=== PATIENT | female | born 1980 | race Asian ===

== ENCOUNTER 2017-12-26 07:15 | Day surgery (SDC) | payer BC ==
[2017-12-24 16:34] VITALS: BMI 33.3
[~2017-12-26 07:15] MED LIST: CEFAZOLIN/Water 2 GM/20 ML SYRINGE ONE
[2017-12-26] MEDS ORDERED: Bupivacaine 0.25% HCL 30 ML VIAL ONE (07:26)
[2017-12-26] MEDS ORDERED: Lidocaine 2% w/Epinephrine 1:200K 20 ML VIAL ONE (07:26)
[2017-12-26] MEDS ORDERED: Fentanyl 100 MCG/2 ML VIAL ONE (07:36)
[2017-12-26] MEDS ORDERED: Midazolam HCl 2 mg/2 ml Vial ONE (07:36)
--- NOTE | 2017-12-26 07:45 | HP ---
CHIEF COMPLAINT: Breast cancer, completed chemotherapy. HISTORY OF PRESENT ILLNESS: The patient is a 37-year-old female, who has been treated with chemother apy for breast cancer. She no longer needs her MediPort. She is here for removal. PAST MEDICAL HISTORY: She had toxoplasmosis at 19 years old and the breast cancer. MEDICATIONS: Levothyroxine, multivitamins. PAST SURGICAL HISTORY: She has had a mastectomy. FAMILY HISTORY: Both parents are alive. Her family is from [facility]. SOCIAL HISTORY: No tobacco or alcohol. She is . ALLERGIES: She has allergies to TOMATOES and EGGS. PHYSICAL EXAMINATION: VITAL SIGNS: She is afebrile, pulse 69, blood pressure 107/67. GENERAL: Well-developed, well-nourished female, in no apparent distress. HEENT: Unremarkable. LUNGS: Clear. HEART: Regular rate and rhythm. BREAST EXAM: The incision has healed well. There is a MediPort on the right side. ABDOMEN: Soft, nontender, good bowel sounds. No hernias. EXTREMITIES: Good pulses. No pedal edema. ASSESSMENT: Completed chemotherapy. PLAN: Removal of MediPort. CONSENT: Discussed planned procedure as well as risk of bleeding and infection. She understands and gives informed consent.
--- NOTE | 2017-12-26 08:39 | OP ---
PREOPERATIVE DIAGNOSIS: Complete chemo. SURGEON: Jamel Santana M.D. PROCEDURE PERFORMED: Removal of MediPort. INDICATIONS: This is a 37-year-old female who has completed chemotherapy for breast cancer and no lo nger requires a MediPort. FINDINGS: Intact system. DESCRIPTION OF PROCEDURE: After informed consent was obtained, patient was taken to the operating ro om and given total intravenous anesthesia and placed in the supine position. Her chest was prepped a nd draped in the usual fashion. Local anesthesia infiltrated subcutaneously and deep. A transverse incision was performed through the old scar. Subcu divided sharply. The capsule incised. The sutur es removed. The MediPort removed. Subcutaneous reapproximated after hemostasis assured with interru pted 3-0 Vicryl. The skin closed with a running subcuticular 4-0 Rapide. Steri-Strips applied. Ban dage applied. The patient tolerated the procedure well and transferred to recovery in good condition . Sponge and needle count verified correct x2.
[2017-12-26] MEDS ORDERED: Lidocaine 1% PF 5 ML VIAL ONE (14:54)
[2017-12-26] MEDS ORDERED: diphenhydrAMINE 50 MG/ML VIAL ONE ×2 (14:54)
[2017-12-26] MEDS ORDERED: Ondansetron HCl/PF 4 MG/2 ML Vial ONE (14:54)
[2017-12-26] MEDS ORDERED: PHENYLEPHRINE-NS 100 MCG/ML 10 ML SYRINGE ONE (14:54)
[2017-12-26] MEDS ORDERED: Dexamethasone 20 MG/5 ML VIAL ONE (14:54)
== END 2017-12-26 11:58 | disposition home or self-care (01) ==
LOC: SDC 07:15
PROVIDERS: ATTEND Surgery
PROC: 0JPT0WZ Removal of Totally Implantable Vascular Access Device from Trunk Subcutaneous Tissue and Fascia, Open Approach (ICD-10-PCS; principal; 2017-12-26)
DX: Z45.2 Encounter for adjustment and management of vascular access device (principal); Z91.012 Allergy to eggs; Z91.018 Allergy to other foods; Z88.8 Allergy status to other drugs, medicaments and biological substances; Z79.899 Other long term (current) drug therapy; Z90.10 Acquired absence of unspecified breast and nipple; Z85.3 Personal history of malignant neoplasm of breast; Z86.19 Personal history of other infectious and parasitic diseases; Z98.890 Other specified postprocedural states
CPT/HCPCS: J1100; J1200; J2001; J2250; J2405; J3010; S0020

== ENCOUNTER 2018-04-19 08:47 | Outpatient (CLI) | payer BC, OTHER ==
[2018-04-19] MEDS ORDERED: Iopamidol 370 76% 100 ML VIAL ONE (11:14)
--- NOTE | 2018-04-23 07:12 | CT ---
CT CHEST WITH IV CONTRAST CT ABDOMEN WITH IV AND ORAL CONTRAST: History: Left breast cancer, re-staging. Comparison: 05-26-16 FINDINGS: No parenchymal lung mass or infiltrate. No pleural fluid or mediastinal adenopathy. Post-operative ch george of left breast and axilla. No recurrent masses are apparent. Area of concern for small irregular low density lesion in the right liver lobe on the previous study is much less conspicuous on the current exam. The spleen, kidneys, adrenal glands, and pancreas are u nremarkable. Circumaortic left renal vein is noted. No enlarged lymph nodes. No evidence of bowel obs truction. Pelvis was not imaged. IMPRESSION: Post-operative changes left breast and axilla. No evidence of recurrent disease. No new abnormalities . POS: VIKY
== END 2018-04-19 08:48 | disposition home or self-care (01) ==
LOC: CT 08:47
PROVIDERS: ATTEND Internal Medicine Hematology & Oncology
DX: C50.412 Malignant neoplasm of upper-outer quadrant of left female breast (principal); Z98.890 Other specified postprocedural states
CPT/HCPCS: 36415; 71260; 74160; 84703

== ENCOUNTER 2018-05-03 10:20 | Outpatient (CLI) | payer BC | END 2018-05-03 10:21 | disposition home or self-care (01) | LOC: BICMAMMO 10:20 | PROVIDERS: ATTEND Surgery | DX: C50.919 Malignant neoplasm of unspecified site of unspecified female breast (principal); Z85.3 Personal history of malignant neoplasm of breast; Z98.890 Other specified postprocedural states | CPT/HCPCS: 77066; G0279 ==

== ENCOUNTER 2019-09-12 08:39 | Outpatient (CLI) | payer BC, OTHER ==
--- NOTE | 2019-09-12 10:20 | CT ---
CT abdomen with contrast: DATE: 09/12/2019 HISTORY: 38-year-old female with breast cancer. Follow-up liver lesion. COMPARISON: 05/26/2016 and 04/19/2018. FINDINGS: On 05/26/2016, there was a small 1.3 cm slightly hypodense nonspecific lesion in the right lobe of the liver in hepatic segment 7. On the current CT, this is more faint, smaller, and less conspicuous, measuring approximately 0.6 cm. It is too small to definitively characterize, but lack of interval gr owth for over 2 years is highly suggestive of a benign entity. Perhaps it is a tiny hepatic hemangioma, and the apparent interval shrinkage is actually due to slightly different timing of phase of scanning. There are no other focal hepatic lesions. Lung bases are clear. Adrenals, pancreas, kidneys, and spleen, are normal. No gross major pathology identified involving the visualized portion s of colon and small intestine. No ascites. No lymphadenopathy in the upper abdomen. IMPRESSION: 1. Tiny lesion in the right lobe of liver is highly likely to be benign. 2. Otherwise negative.
== END 2019-09-12 08:40 | disposition home or self-care (01) ==
LOC: CT 08:39
PROVIDERS: ATTEND Internal Medicine Hematology & Oncology
DX: K76.89 Other specified diseases of liver (principal); C50.919 Malignant neoplasm of unspecified site of unspecified female breast
CPT/HCPCS: 74160

== ENCOUNTER 2019-09-19 09:44 | Outpatient (CLI) | payer BC ==
--- NOTE | 2019-09-19 10:29 | MMO ---
Bilateral MAMMO Bilat Diag [facility]AK[facility]. CLINICAL HISTORY: Patient is 38 years old and is seen for screening. The patient has no family history of breast cancer. The patient has a history of lumpectomy procedure revealed invasive ductal carcinoma in the left axilla in April, and Ultrasound guided core biopsy procedure revealed invasive ductal left breast carcinoma in Mar, 2016. The patient has a history of left Ultrasound Guided Core Biopsy in Mar, 2016. VIEWS: The views performed were: bilateral craniocaudal with tomosynthesis; bilateral mediolateral oblique with tomosynthesis; and bilateral mediolateral with tomosynthesis. FILMS COMPARED: The present examination has been compared to prior imaging studies performed at [facility] on 04/11/2016 and 05/03/2018. This study has been interpreted with the assistance of computer-aided detection. MAMMOGRAM FINDINGS: There are scattered fibroglandular densities. There is an area of skin thickening, an area of architectural distortion, a post-surgical scar and a post operative change seen in the left breast. There are no suspicious masses, suspicious calcifications, or new areas of architectural distortion. IMPRESSION: THERE IS NO MAMMOGRAPHIC EVIDENCE OF MALIGNANCY. THE FINDINGS AND RECOMMENDATIONS WERE DISCUSSED WITH THE PATIENT PRIOR TO HER LEAVING THE CENTER. A ROUTINE FOLLOW-UP MAMMOGRAM AT AGE 40 IS RECOMMENDED. THE RESULTS OF THIS EXAM WERE SENT TO THE PATIENT. ACR BI-RADS Category 2 - Benign finding MAMMOGRAPHY NOTE: 1. A negative mammogram report should not delay a biopsy if a dominant of clinically suspicious mass is present. 2. Approximately 10% to 15% of breast cancers are not detected by mammography. 3. Adenosis and dense breasts may obscure an underlying neoplasm. Reported by: TAWANDA BOBBY MD Electonically Signed: [id number]
== END 2019-09-19 09:45 | disposition home or self-care (01) ==
LOC: BICMAMMO 09:44
PROVIDERS: ATTEND Internal Medicine Hematology & Oncology
DX: C50.412 Malignant neoplasm of upper-outer quadrant of left female breast (principal); D70.9 Neutropenia, unspecified; R11.0 Nausea
CPT/HCPCS: 77063; 77066; 77067; G0279

== ENCOUNTER 2020-06-18 14:41 | Outpatient (CLI) | payer BC ==
--- NOTE | 2020-06-18 15:19 | MMO ---
Right Breast MAMMO Unilat Diag [facility]DI RT+ZAKIA. CLINICAL HISTORY: Patient is 39 years old and is seen for diagnostic exam. The patient has no family history of breast cancer. 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 The patient has a history of left Ultrasound Guided Core Biopsy in Mar, 2016. VIEWS: The views performed were: right craniocaudal with tomosynthesis; right mediolateral oblique with tomosynthesis; and right mediolateral with tomosynthesis. FILMS COMPARED: The present examination has been compared to prior imaging studies performed at [facility] on 04/11/2016, 05/03/2018, 09/19/2019 and 06/18/2020. This study has been interpreted with the assistance of computer-aided detection. MAMMOGRAM FINDINGS: There are scattered fibroglandular densities. There are no suspicious masses, suspicious calcifications, or new areas of architectural distortion. There are no mammographic or sonographic abnormalities in the area of palpable concern. The patient is referred back to her clinician. Negative imaging findings should not preclude biopsy if clinical findings are suspicious. IMPRESSION: THERE IS NO MAMMOGRAPHIC EVIDENCE OF MALIGNANCY. THE RESULTS OF THIS EXAM WERE SENT TO THE PATIENT. ACR BI-RADS Category 1 - Negative MAMMOGRAPHY NOTE: 1. A negative mammogram report should not delay a biopsy if a dominant of clinically suspicious mass is present. 2. Approximately 10% to 15% of breast cancers are not detected by mammography. 3. Adenosis and dense breasts may obscure an underlying neoplasm. Reported by: KESHAV TSE MD Electonically Signed: [id number]
--- NOTE | 2020-06-18 15:22 | ULT ---
EXAM: US Breast Limited Rt PROVIDED CLINICAL HISTORY: Right breast palpable abnormality COMPARISON: None FINDINGS: Limited sonographic interrogation was performed of the right breast in the region of palpable concern . The sonographic appearance of the breast tissue in this region is normal. IMPRESSION: No sonographic abnormality is evident in the region of clinical concern. Negative imaging findings sh ould not preclude further evaluation of a clinically suspicious finding. Patient is referred back to her clinician.
== END 2020-06-18 14:42 | disposition home or self-care (01) ==
LOC: BICMAMMO 14:41
PROVIDERS: ATTEND Internal Medicine Hematology & Oncology
DX: N63.14 Unspecified lump in the right breast, lower inner quadrant (principal); C50.412 Malignant neoplasm of upper-outer quadrant of left female breast
CPT/HCPCS: G0279

== ENCOUNTER 2022-01-26 13:08 | Outpatient (CLI) | payer BC | END 2022-01-26 13:09 | disposition home or self-care (01) | LOC: BICMAMMO 13:08 | PROVIDERS: ATTEND Internal Medicine Hematology & Oncology | DX: Z12.31 Encounter for screening mammogram for malignant neoplasm of breast (principal); Z98.890 Other specified postprocedural states | CPT/HCPCS: 77063; 77067 ==

== ENCOUNTER 2023-01-12 10:13 | Outpatient (CLI) | payer BC ==
[2023-01-12] MEDS ORDERED: Iopamidol 370 76% 100 ML VIAL ONE (13:53)
== END 2023-01-12 10:14 | disposition home or self-care (01) ==
LOC: CT 10:13
PROVIDERS: ATTEND Internal Medicine Hematology & Oncology
DX: C50.412 Malignant neoplasm of upper-outer quadrant of left female breast (principal); D50.0 Iron deficiency anemia secondary to blood loss (chronic); I26.99 Other pulmonary embolism without acute cor pulmonale; R07.9 Chest pain, unspecified; R00.2 Palpitations
CPT/HCPCS: 71275; Q9967

== ENCOUNTER 2023-02-28 12:16 | Outpatient (CLI) | payer BC | END 2023-02-28 12:17 | disposition home or self-care (01) | LOC: BICMAMMO 12:16 | PROVIDERS: ATTEND Internal Medicine Hematology & Oncology | DX: Z12.31 Encounter for screening mammogram for malignant neoplasm of breast (principal); Z85.3 Personal history of malignant neoplasm of breast; Z98.890 Other specified postprocedural states | CPT/HCPCS: 77063; 77067 ==

== ENCOUNTER 2024-12-09 17:42 | Inpatient (IN) | payer BC ==
[2024-12-09] MEDS ORDERED: Morphine 2 MG/ML VIAL ONE (18:07)
[2024-12-09] MEDS ORDERED: Ondansetron PF 4 MG/2 ML Vial ONE (18:07)
[2024-12-09] MEDS ORDERED: Acetaminophen 500 MG TAB ONE ×2 (18:07→22:26)
[2024-12-09 18:16] LABS: #Basophils 0.04 10x3/uL (0.0-0.2); %Basophils 0.3 % (0.0-1.0); %Eosinophils 1.3 % (0.0-10.0); %Lymphocytes 11.9 % (21.0-51.0); %Monocytes 3.2 % (0.0-10.0); %Neutrophils 82.8 % (42.0-75.0); Hematocrit 41.8 % (36.0-47.0); Hemoglobin 13.6 g/dL (12.0-16.0); Mean Corpuscular HGB CONC 32.5 g/dL (32.0-36.0); Mean Corpuscular Volume 82.9 fL (78.0-98.0); Mean Platelet Volume 10.3 fL (7.4-10.4); Platelet Count 339 10x3/uL (130-400); RBC Distribution Width 14.4 % (11.5-14.5); Red Blood Cell (RBC) Count 5.04 mill/uL (4.20-5.40)
[2024-12-09 18:29] LABS: INR-International Normal Ratio 0.9; Prothrombin Time 11.6 sec (12.0-14.7)
[2024-12-09 18:35] LABS: Troponin I Less than 0.010 ng/mL (< 0.028)
[2024-12-09] MEDS ORDERED: cefTRIAXone (ROCEPHIN) 1 GM VIAL ONE (18:36)
[2024-12-09] MEDS ORDERED: Sodium Chloride 0.9% 100 ML ONE (18:36)
[2024-12-09] MEDS ORDERED: Ondansetron PF 4 MG/2 ML Vial IVP PRN (20:27)
[2024-12-09 20:40] LABS: ALT (SGPT) 11 U/L (8-55); AST (SGOT) 8 U/L (5-34); Albumin 0.9 g/dL (3.5-5.0); Alkaline Phosphatase 21 U/L (40-110); Anion Gap 4 mmol/L (10-20); BUN (Urea Nitrogen) 4 mg/dL (7.0-18.7); Calc. Creatinine Clearance 0 mL/min (70-130); Calcium 2.4 mg/dL (7.8-10.44); Carbon Dioxide 8 mmol/L (22-29); Chloride 136 mmol/L (98-107); Globulin 0.8 g/dL (2.4-3.5); Glucose 36 mg/dL (70-105); Potassium 1.2 mmol/L (3.5-5.1); Protein, Total 1.7 g/dL (6.0-8.3); Sodium 147 mmol/L (136-145)
[2024-12-09 20:59] LABS: Bilirubin, Total 0.1 mg/dL (0.2-1.2)
[2024-12-09 21:07] LABS: #Basophils Less than 0.03 10x3/uL (0.0-0.2); %Basophils 0.2 % (0.0-1.0); %Eosinophils 0.5 % (0.0-10.0); %Lymphocytes 10.3 % (21.0-51.0); %Monocytes 2.9 % (0.0-10.0); %Neutrophils 85.8 % (42.0-75.0); Hemoglobin 12.7 g/dL (12.0-16.0); Mean Corpuscular HGB CONC 33.4 g/dL (32.0-36.0); Mean Corpuscular Hemoglobin 27.4 pg (27.0-31.0); Mean Corpuscular Volume 81.9 fL (78.0-98.0); Mean Platelet Volume 10.5 fL (7.4-10.4); Platelet Count 286 10x3/uL (130-400); RBC Distribution Width 14.3 % (11.5-14.5); Red Blood Cell (RBC) Count 4.64 mill/uL (4.20-5.40)
[2024-12-09] MEDS ORDERED: diphenhydrAMINE 50 MG/ML VIAL ONE (21:15)
[2024-12-09 21:24] LABS: ALT (SGPT) 40 U/L (8-55); AST (SGOT) 28 U/L (5-34); Albumin 3.5 g/dL (3.5-5.0); Alkaline Phosphatase 81 U/L (40-110); Anion Gap 14 mmol/L (10-20); BUN (Urea Nitrogen) 10 mg/dL (7.0-18.7); Bilirubin, Total 0.3 mg/dL (0.2-1.2); Calc. Creatinine Clearance 0 mL/min (70-130); Calcium 8.2 mg/dL (7.8-10.44); Carbon Dioxide 23 mmol/L (22-29); Chloride 108 mmol/L (98-107); Estimated GFR 111; Globulin 3.4 g/dL (2.4-3.5); Glucose 104 mg/dL (70-105); Potassium 3.9 mmol/L (3.5-5.1); Protein, Total 6.9 g/dL (6.0-8.3); Sodium 141 mmol/L (136-145)
[2024-12-09 22:56] VITALS: BMI 35.1
[2024-12-09] MEDS: Vancomycin (BATCH) 1.75 GM in Premix 1 BAG IVPB SCH (23:00)
[2024-12-10] MEDS: Vancomycin 1 GM in Premix 1 BAG IVPB SCH (03:56)
[2024-12-10] MEDS: Acetaminophen 325 MG TAB PO PRN (03:58)
[2024-12-10] MEDS: Ketorolac Tromethamine 30 MG (1 mL) VIAL IVP SCH (05:08)
[2024-12-10] MEDS: diphenhydrAMINE 25 MG CAP PO SCH (05:08)
[2024-12-10 06:13] LABS: #Basophils 0.03 10x3/uL (0.0-0.2); #Eosinophils Less than 0.03 10x3/uL (0.0-0.7); %Basophils 0.2 % (0.0-1.0); %Eosinophils 0.2 % (0.0-10.0); %Lymphocytes 13.5 % (21.0-51.0); %Neutrophils 82.8 % (42.0-75.0); Hematocrit 35.9 % (36.0-47.0); Hemoglobin 11.6 g/dL (12.0-16.0); Mean Corpuscular HGB CONC 32.3 g/dL (32.0-36.0); Mean Corpuscular Volume 83.5 fL (78.0-98.0); Mean Platelet Volume 10.4 fL (7.4-10.4); Platelet Count 282 10x3/uL (130-400); RBC Distribution Width 14.6 % (11.5-14.5)
[2024-12-10 06:33] LABS: Anion Gap 11 mmol/L (10-20); BUN (Urea Nitrogen) 9 mg/dL (7.0-18.7); Calc. Creatinine Clearance 165 mL/min (70-130); Calcium 8.9 mg/dL (7.8-10.44); Carbon Dioxide 24 mmol/L (22-29); Chloride 107 mmol/L (98-107); Estimated GFR 111; Glucose 132 mg/dL (70-105); Potassium 3.4 mmol/L (3.5-5.1); Sodium 139 mmol/L (136-145); Vancomycin, Random 20.3 ug/mL (See Comment)
[2024-12-10] MEDS: Cefepime 1 GM in Sodium Chloride 0.9% 100 ML IVPB SCH (06:47)
[2024-12-10] MEDS: Ibuprofen 200 MG TAB PO PRN (08:16)
[2024-12-10] MEDS: Enoxaparin 40 MG (0.4 mL) SYRINGE SC SCH (08:16)
[2024-12-10] MEDS ORDERED: Levothyroxine Sodium 50 MCG TAB PO SCH (09:00)
[2024-12-10] MEDS: Venlafaxine XR 37.5 MG CAP PO SCH (10:50)
[2024-12-10] MEDS: Vancomycin (BATCH) 1.75 GM in Premix 1 BAG IVPB SCH (13:07)
[2024-12-10] MEDS: Cefepime 2 GM in Sodium Chloride 0.9% 100 ML IVPB SCH (18:22)
[2024-12-11] MEDS: Levothyroxine 150 MCG TAB PO SCH (05:34)
[2024-12-11 05:53] LABS: #Basophils Less than 0.03 10x3/uL (0.0-0.2); %Basophils 0.3 % (0.0-1.0); %Eosinophils 5.9 % (0.0-10.0); %Neutrophils 56.5 % (42.0-75.0); Hematocrit 34.6 % (36.0-47.0); Hemoglobin 11.4 g/dL (12.0-16.0); Mean Corpuscular HGB CONC 32.9 g/dL (32.0-36.0); Mean Corpuscular Hemoglobin 27.3 pg (27.0-31.0); Mean Corpuscular Volume 82.8 fL (78.0-98.0); Mean Platelet Volume 10.1 fL (7.4-10.4); Platelet Count 241 10x3/uL (130-400); RBC Distribution Width 14.4 % (11.5-14.5); Red Blood Cell (RBC) Count 4.18 mill/uL (4.20-5.40)
[2024-12-11 06:12] LABS: Anion Gap 9 mmol/L (10-20); BUN (Urea Nitrogen) 7 mg/dL (7.0-18.7); Calc. Creatinine Clearance 190 mL/min (70-130); Calcium 8.5 mg/dL (7.8-10.44); Carbon Dioxide 25 mmol/L (22-29); Chloride 110 mmol/L (98-107); Estimated GFR 115; Glucose 99 mg/dL (70-105); Potassium 3.4 mmol/L (3.5-5.1); Sodium 141 mmol/L (136-145)
[2024-12-11 06:15] LABS: Vancomycin, Random 26.3 ug/mL (See Comment)
[2024-12-11 08:06] VITALS: BP 150/87; TEMP 97.9
[2024-12-11] MEDS: Potassium Chloride 20 MEQ TAB PO SCH (10:38)
[2024-12-11] MEDS: Vancomycin 1.5 GRAM/300 ML BAG 1.5 GM in Premix 1 BAG IVPB SCH (12:36)
[2024-12-11] MEDS: diphenhydrAMINE 50 MG/ML VIAL IVP SCH (12:36)
[2024-12-11] MEDS: Polyethylene Glycol 3350 17 GM Packet PO SCH (13:50)
[2024-12-11] MEDS: Cephalexin 250 MG CAP PO SCH (15:20)
[2024-12-11] MEDS ORDERED: Vancomycin (BATCH) 1.5 GM in Premix 1 BAG IVPB SCH (23:59)
== END 2024-12-11 16:23 | disposition home or self-care (01) | DRG 872 ==
LOC: ERS 17:42 → T4-B 20:29
PROVIDERS: ADMIT Internal Medicine; ATTEND Internal Medicine
DX: A41.9 Sepsis, unspecified organism (principal); L03.114 Cellulitis of left upper limb; E87.20 Acidosis, unspecified; E03.9 Hypothyroidism, unspecified; N61.0 Mastitis without abscess; I89.0 Lymphedema, not elsewhere classified; Z90.710 Acquired absence of both cervix and uterus; Z90.5 Acquired absence of kidney; Z85.3 Personal history of malignant neoplasm of breast; Z92.3 Personal history of irradiation; Z79.890 Hormone replacement therapy; Z79.899 Other long term (current) drug therapy
CPT/HCPCS: 36415; 36416; 71045; 80048; 80053; 80202; 83605; 84484; 85025; 85610; 85730; 87040; 93005; 94760; 96361; 96374; 96375; J0692; J0696; J1200; J1650; J1885; J2272; J2405; J3370

== ENCOUNTER 2025-01-22 22:15 | Emergency (ER) | payer BC ==
[2025-01-22] MEDS ORDERED: Ondansetron PF 4 MG/2 ML Vial ONE (23:14)
[2025-01-22] MEDS ORDERED: Ketorolac Tromethamine 30 MG (1 mL) VIAL ONE (23:14)
[2025-01-22 23:24] LABS: Bacteria/HPF None Seen HPF (None Seen); Bilirubin Negative (Negative); Blood, Urine Negative (Negative); CAUTI Indications for Culture Dysuria,urgency,freq; Clarity Clear (Clear); Glucose, Urine (Dipstick) Normal (Negative); Ketone, Urine Negative (Negative); Leukocyte Negative Leu/uL (Negative); Nitrite Negative (Negative); Protein, Urine (Dipstick) Negative (Neg-Trace); RBC/HPF 0-3 HPF (0-3); Specific Gravity, Urine 1.004 (1.002-1.036); Squamous Epithelial 0-3 HPF (0-3); Urobilinogen Normal mg/dL (Less than 2); WBC/HPF None Seen HPF (0-3)
[2025-01-22 23:29] LABS: Urine Culture Reflex No No
[2025-01-22 23:30] LABS: #Basophils 0.07 10x3/uL (0.0-0.2); %Eosinophils 4.7 % (0.0-10.0); %Lymphocytes 42.6 % (21.0-51.0); %Monocytes 6.8 % (0.0-10.0); %Neutrophils 44.8 % (42.0-75.0); Hematocrit 38.7 % (36.0-47.0); Hemoglobin 12.7 g/dL (12.0-16.0); Mean Corpuscular HGB CONC 32.8 g/dL (32.0-36.0); Mean Corpuscular Hemoglobin 26.7 pg (27.0-31.0); Mean Corpuscular Volume 81.3 fL (78.0-98.0); Mean Platelet Volume 10.3 fL (7.4-10.4); Platelet Count 330 10x3/uL (130-400); RBC Distribution Width 15.2 % (11.5-14.5); Red Blood Cell (RBC) Count 4.76 mill/uL (4.20-5.40)
[2025-01-22 23:39] LABS: BHCG - Serum Negative (NEGATIVE); Pregs Control Background? CLEAR/WHITE (CLR/WHITE); Pregs Control Bar Appear? YES (CONTROL BAR)
[2025-01-22 23:45] LABS: ALT (SGPT) 20 U/L (Less than 34); AST (SGOT) 32 U/L (11-34); Alkaline Phosphatase 81 U/L (40-110); Anion Gap 15 mmol/L (10-20); BUN (Urea Nitrogen) 10 mg/dL (7.0-18.7); Bilirubin, Total 0.2 mg/dL (0.3-1.2); Calc. Creatinine Clearance 0 mL/min (70-130); Calcium 9.1 mg/dL (7.8-10.44); Carbon Dioxide 24 mmol/L (22-29); Chloride 104 mmol/L (98-107); Estimated GFR 111; Globulin 3.2 g/dL (2.4-3.5); Glucose 105 mg/dL (70-105); Lipase 36 U/L (8-78); Potassium 3.6 mmol/L (3.5-5.1); Protein, Total 7.2 g/dL (6.0-8.3); Sodium 139 mmol/L (136-145)
[2025-01-22 23:50] LABS: Troponin I Less than 0.010 ng/mL (< 0.028)
== END 2025-01-23 01:56 | disposition home or self-care (01) ==
LOC: ERS 22:15
DX: R10.84 Generalized abdominal pain (principal); R19.5 Other fecal abnormalities; E03.9 Hypothyroidism, unspecified; Z79.890 Hormone replacement therapy
CPT/HCPCS: 71045; 74177; 80053; 81001; 83690; 84484; 84703; 85025; 93005; 96374; 96375; J1885; J2405

== ENCOUNTER 2025-08-05 11:09 | Outpatient (CLI) | payer BC | END 2025-08-05 11:10 | disposition home or self-care (01) | LOC: BICMAMMO 11:09 | PROVIDERS: ATTEND Internal Medicine Hematology & Oncology | DX: Z12.31 Encounter for screening mammogram for malignant neoplasm of breast (principal); Z98.890 Other specified postprocedural states; Z85.3 Personal history of malignant neoplasm of breast; Z91.89 Other specified personal risk factors, not elsewhere classified | CPT/HCPCS: 77063; 77067 ==